=== PATIENT | female | born 1985 | race Caucasian/White ===

== ENCOUNTER 2021-01-14 04:20 | Day surgery (SDC) | payer OTHER ==
[2021-01-10 18:36] VITALS: BMI 32.9
[2021-01-14] MEDS ORDERED: PROPOFOL 20 ML ONE ×2 (12:11→14:47)
[2021-01-14] MEDS ORDERED: LIDOCAINE HCL/PF 2% SDV 5ML VIAL ONE (12:11)
[2021-01-14] MEDS ORDERED: MIDAZOLAM HCL 2 MG/2 ML SINGLE DOSE VIAL ONE (12:11)
[2021-01-14 13:01] LABS: INR 0.92 (0.83-1.09); PROTHROMBIN TIME (PATIENT) 11.4 SEC (9.7-13.0)
[2021-01-14 13:04] LABS: ACTIVATED PTT 31.7 SECONDS (25.2-36.5)
[2021-01-14] MEDS ORDERED: oxyCODONE HCL 5 MG TABLET PO PRN (13:56)
[2021-01-14] MEDS ORDERED: ACETAMINOPHEN 500 MG TABLET (FP) PO PRN (13:56)
[2021-01-14] MEDS ORDERED: ONDANSETRON 4 MG/2 ML VIAL IVPUSH PRN (13:56)
[2021-01-14] MEDS ORDERED: ACETAMINOPHEN INJECTION 100 ML IVPB ONE (16:55)
[2021-01-14] MEDS ORDERED: ACETAMINOPHEN 1000 MG/100 ML VIAL (NON FORMULARY) IVPB ONE (17:00)
[2021-01-14] MEDS ORDERED: oxyCODONE HCL 5 MG TABLET ONE (19:09)
[2021-01-14 19:41] VITALS: TEMP 98.3
[2021-01-14 19:45] VITALS: BP 116/77; PULSE 72
== END 2021-01-14 19:55 | disposition home or self-care (01) ==
LOC: JASU-SURG 04:20
PROVIDERS: ATTEND Obstetrics & Gynecology
PROC: 0UJD8ZZ Inspection of Uterus and Cervix, Via Natural or Artificial Opening Endoscopic (ICD-10-PCS; 2021-01-14)
PROC: 0UB98ZZ Excision of Uterus, Via Natural or Artificial Opening Endoscopic (ICD-10-PCS; principal; 2021-01-14 14:00)
PROC: 0UDB7ZX Extraction of Endometrium, Via Natural or Artificial Opening, Diagnostic (ICD-10-PCS; 2021-01-14 14:00)
DX: D25.0 Submucous leiomyoma of uterus (principal); N94.6 Dysmenorrhea, unspecified; N92.1 Excessive and frequent menstruation with irregular cycle
CPT/HCPCS: 36415; 84703; 85610; 85730; 86850; 86900; 86901; 86922; 88305-TC; 94760; J0131

== ENCOUNTER 2022-10-02 05:33 | Day surgery (SDC) | payer BC ==
[2022-09-29 15:13] VITALS: BMI 22.9
[2022-10-02] MEDS ORDERED: FENTANYL CITRATE/PF 50 MCG/ML VIAL ONE ×6 (13:14→17:27)
[2022-10-02] MEDS ORDERED: LIDOCAINE HCL/PF 2% SDV 5ML VIAL ONE (13:14)
[2022-10-02] MEDS ORDERED: SUCCINYLCHOLINE CHLORIDE 200 MG/10 ML SYRINGE ONE (13:14)
[2022-10-02] MEDS ORDERED: PROPOFOL 20 ML ONE (13:14)
[2022-10-02] MEDS ORDERED: MIDAZOLAM HCL 2 MG/2 ML SINGLE DOSE VIAL ONE (13:14)
[2022-10-02] MEDS ORDERED: DEXAMETHASONE SOD PHOSPHATE 4 MG/1 ML VIAL ONE (13:31)
[2022-10-02] MEDS ORDERED: ceFAZolin SODIUM 1 GM VIAL ONE ×2 (13:33)
[2022-10-02] MEDS ORDERED: ceFAZolin SODIUM 1 GM VIAL IVPB ONE (13:34)
[2022-10-02] MEDS ORDERED: ONDANSETRON 4 MG/2 ML VIAL IVPUSH PRN (14:34)
[2022-10-02] MEDS ORDERED: ACETAMINOPHEN 1000 MG/100 ML BAG IVPB ONE ×2 (14:34→14:42)
[2022-10-02] MEDS ORDERED: LACTATED RINGERS SOLUTION 1,000 ML IV SCH (14:45)
[2022-10-02] MEDS ORDERED: FENTANYL CITRATE/PF 50 MCG/ML VIAL IVPUSH PRN (17:00)
[2022-10-02] MEDS ORDERED: ACETAMINOPHEN 325 MG TABLET (FP) PO PRN (18:15)
[2022-10-02] MEDS ORDERED: IBUPROFEN 600 MG TABLET (FP) PO PRN (18:15)
[2022-10-02 18:58] VITALS: RESP 20
[2022-10-02] MEDS: oxyCODONE HCL 5 MG TABLET PO PRN (22:16)
[2022-10-02 22:34] LABS: HEMATOCRIT 29.4 % (32.4-45.2); HEMOGLOBIN 9.2 GM/dL (10.7-15.3); MCH 22.9 pg (25.7-33.7); MCHC 31.4 g/dl (32.0-36.0); MEAN CELL VOLUME 72.8 fl (80-96); PLATELET COUNT 431 10^3/uL (134-434); RBC 4.04 M/mm3 (3.60-5.2); RDW 25.2 % (11.6-15.6); WHITE BLOOD COUNT 4.9 K/mm3 (4.0-10.0)
[2022-10-03 07:17] VITALS: BP 118/74; PULSE 91; TEMP 99.5
[2022-10-03] MEDS: oxyCODONE HCL 5 MG TABLET PO PRN (08:30)
[2022-10-03] MEDS ORDERED: DOCUSATE SODIUM 100 MG CAPSULE (FP) PO SCH (10:00)
== END 2022-10-03 13:40 | disposition home or self-care (01) ==
LOC: JASU-SURG 05:33 → JASUSAT 05:33 → J8W 16:54 → JASUSAT 10-03 13:40
PROVIDERS: ATTEND Obstetrics & Gynecology
PROC: 0U5B8ZZ Destruction of Endometrium, Via Natural or Artificial Opening Endoscopic (ICD-10-PCS; principal; 2022-10-02 12:30)
PROC: 0UDB7ZX Extraction of Endometrium, Via Natural or Artificial Opening, Diagnostic (ICD-10-PCS; 2022-10-02 12:30)
DX: N92.1 Excessive and frequent menstruation with irregular cycle (principal); D25.0 Submucous leiomyoma of uterus; D50.0 Iron deficiency anemia secondary to blood loss (chronic)
CPT/HCPCS: 36415; 36430; 85027; 86850; 86900; 86901; 86922; 88305-TC; 94760; P9058